=== PATIENT | female | born 1995 | race Two or more races ===

== ENCOUNTER 2018-05-07 08:05 | Emergency (ER) | payer MEDICAID, OTHER ==
[~2018-05-07] VITALS: Ht 154.9 cm; Wt 99.8 kg
[2018-05-07 09:38] VITALS: BP 128/70
[2018-05-07] MEDS ORDERED: methylPREDNISolone SOD SUCC 125 MG/2 ML VL IM ONE (10:00)
[2018-05-07] MEDS ORDERED: cefTRIAXone SOD 1,000 MG VL IM ONE (10:00)
== END 2018-05-07 10:57 | disposition home or self-care (01) ==
LOC: ER 08:05
DX: J03.90 Acute tonsillitis, unspecified (principal); H60.92 Unspecified otitis externa, left ear; E66.01 Morbid (severe) obesity due to excess calories
CPT/HCPCS: 96372; 99283; J0696; J2930